=== PATIENT | female | born 1945 | race Caucasian/White ===

== ENCOUNTER 2022-08-28 05:25 | Observation (INO) | payer OTHER ==
[2022-08-27 10:36] LABS: BASOPHILS % 0.7 % (0.0-1.0); EOSINOPHILS # (AUTO) 0.1 (0.0-0.4); EOSINOPHILS % 1.7 % (0.0-6.0); HEMATOCRIT 44.6 % (34.2-44.1); HEMOGLOBIN 13.2 g/dL (12.0-16.0); LYMPHOCYTES # (AUTO) 2.3 (1.0-3.2); LYMPHOCYTES % 37.9 % (18.0-39.1); MEAN CORPUSCULAR HEMOGLOBIN 31.7 pg (28-32); MEAN CORPUSCULAR HGB CONC 29.6 g/dL (31-35); MEAN CORPUSCULAR VOLUME 107.2 fL (81-99); MONOCYTES # (AUTO) 0.5 (0.2-0.8); MONOCYTES % 7.8 % (4.4-11.3); NEUTROPHILS # (AUTO) 3.1 (2.1-6.9); NEUTROPHILS % 51.7 % (38.7-80.0); PLATELET COUNT 284 x10e3/uL (140-360); RED BLOOD COUNT 4.16 x10e6/uL (3.6-5.1); RED CELL DISTRIBUTION WIDTH 13.8 % (11.7-14.4)
[~2022-08-28] VITALS: Ht 165.1 cm; Wt 113.4 kg
[~2022-08-28 05:25] MED LIST: LEVOTHYROXINE75 MCG PO; MELOXICAM7.5 MG PO; METOPROLOL SUCC25 MG PO; MULTI-VITAMIN1 EACH PO; OMEPRAZOLE40 MG PO; XARELTO20 MG PO
[2022-08-28] MEDS ORDERED: CELECOXIB 200 MG CAP ONE (06:04)
[2022-08-28] MEDS ORDERED: GABAPENTIN 300 MG CAP ONE (06:04)
[2022-08-28] MEDS ORDERED: DEXAMETHASONE SOD PHOS 10 MG/1 ML VIAL ONE (06:04)
[2022-08-28] MEDS ORDERED: CEFAZOLIN SODIUM 4 GM ONE (06:04)
[2022-08-28] MEDS ORDERED: Vancomycin IV 1,000 MG ONE (07:05)
[2022-08-28] MEDS ORDERED: TRANEXAMIC ACID 10 ML ONE ×2 (07:06→07:07)
[2022-08-28] MEDS ORDERED: SODIUM CHLORIDE 0.9% 500ML 500 ML ONE (07:07)
[2022-08-28] MEDS ORDERED: SCOPOLAMINE 1 MG PATCH ONE (07:19)
[2022-08-28] MEDS ORDERED: ROPIVACAINE 246.25 MG, EPINEPHRINE HCL 1:1000 1ML 0.5 MG, CLONIDINE HCL 0.08 MG, KETORO... INJ ONE ×5 (07:30)
[2022-08-28] MEDS ORDERED: ZOLPIDEM TARTRATE 5 MG TAB PO PRN (09:00)
[2022-08-28] MEDS ORDERED: ACETAMINOPHEN 650 MG SUPP PR PRN (09:00)
[2022-08-28] MEDS ORDERED: DIPHENHYDRAMINE HCL INJ 50 MG/ML VIAL IV PRN (09:00)
[2022-08-28] MEDS ORDERED: ONDANSETRON HCL INJ 2MG/ML 2ML 2 MG/ML VIAL IV PRN (09:00)
[2022-08-28] MEDS: SODIUM CHLORIDE 0.9% 1000ML 1,000 ML IV SCH ×2 (09:00→19:00)
[2022-08-28] MEDS ORDERED: DOCUSATE SODIUM 100 MG CAP PO PRN (09:00)
[2022-08-28] MEDS ORDERED: SEVOFLURANE INHAL SOLN 250 ML PEN BTL ONE (12:49)
[2022-08-28] MEDS ORDERED: LIDOCAINE HCL 2% LOCAL INJ 5 ML SDV VIAL INJ ONE (12:49)
[2022-08-28] MEDS ORDERED: PROPOFOL IV EMULSION 10 MG/ML 20 ML VIAL ONE (12:49)
[2022-08-28] MEDS ORDERED: PHENYLEPHRINE HCL 1% 10 MG/ML VIAL ONE (12:49)
[2022-08-28] MEDS ORDERED: DEXAMETHASONE SOD PHOS INJ 4 MG/ML SDV ONE (12:49)
[2022-08-28] MEDS ORDERED: ONDANSETRON HCL INJ 2MG/ML 2ML 2 MG/ML VIAL ONE (12:49)
[2022-08-28] MEDS ORDERED: POVIDONE IODINE 0.05% 0.05 % ML PO ONE (12:49)
[2022-08-28 13:46] VITALS: BP 114/69
[2022-08-28 14:03] VITALS: BP 114/69
[2022-08-28 16:00] VITALS: BP 105/70
[2022-08-28] MEDS: CELECOXIB 200 MG CAP PO SCH (16:10)
[2022-08-28] MEDS ORDERED: ACETAMINOPHEN 1000 MG/100 ML IV PRN (17:00)
[2022-08-28 20:45] VITALS: BP 119/67
[2022-08-29 00:54] VITALS: BP 110/58
[2022-08-29] MEDS: SODIUM CHLORIDE 0.9% 1000ML 1,000 ML IV SCH (02:46)
[2022-08-29 04:00] VITALS: BP 118/55
[2022-08-29 04:59] LABS: HEMATOCRIT 34.3 % (34.2-44.1); HEMOGLOBIN 10.9 g/dL (12.0-16.0)
[2022-08-29 08:13] VITALS: BP 108/99
[2022-08-29] MEDS: CELECOXIB 200 MG CAP PO SCH (08:42)
[2022-08-29 08:51] VITALS: BP 108/99
[2022-08-29] MEDS ORDERED: ACETAMINOPHEN 325 MG TAB PO PRN (09:00)
[2022-08-29] MEDS ORDERED: RIVAROXABAN 10 MG TABLET PO SCH (17:00)
== END 2022-08-29 10:50 | disposition home or self-care (01) ==
LOC: OR 05:25 → PACU V 08:53 → MED/SURG 13:36
PROVIDERS: ADMIT Internal Medicine; ATTEND Internal Medicine
DX: M17.11 Unilateral primary osteoarthritis, right knee (principal); Z86.718 Personal history of other venous thrombosis and embolism; I48.0 Paroxysmal atrial fibrillation; E66.01 Morbid (severe) obesity due to excess calories; E11.9 Type 2 diabetes mellitus without complications; I10 Essential (primary) hypertension; K21.9 Gastro-esophageal reflux disease without esophagitis; Z88.6 Allergy status to analgesic agent; Z01.810 Encounter for preprocedural cardiovascular examination; Z01.812 Encounter for preprocedural laboratory examination; Z01.818 Encounter for other preprocedural examination; Z20.822 Contact with and (suspected) exposure to COVID-19; Z79.02 Long term (current) use of antithrombotics/antiplatelets; Z79.899 Other long term (current) drug therapy; Z68.41 Body mass index [BMI] 40.0-44.9, adult; Z86.73 Personal history of transient ischemic attack (TIA), and cerebral infarction without residual deficits
CPT/HCPCS: 0223U; 36415; 71046; 82948; 85014; 85018; 85025; 86850; 86900; 86920; 93005; 94799; C1713; C1776; G0378; J0171; J0690; J1100; J1885; J2001; J2370; J2405; J2795; J3370; J7030; J7040